=== PATIENT | male | born 1960 | race Caucasian/White ===

== ENCOUNTER 2018-01-04 13:25 | Inpatient (IN) | payer MEDICAID ==
[~2018-01-04] VITALS: Ht 180.3 cm; Wt 97.4 kg
[~2018-01-04 13:25] MED LIST: DOXY100C46 PO; FLUC200T50 PO
[2018-01-04 14:04] LABS: Urine WBC None Seen /hpf (0 - 3)
[2018-01-04 14:13] LABS: Urine Bacteria NONE SEEN /hpf (None Seen); Urine Blood 1+ /uL (Negative); Urine Mucus FEW (None Seen); Urine Specific Gravity 1.017 (1.001-1.035)
[2018-01-04 14:18] LABS: Basophils # (auto) 0.1 uL; Basophils % (auto) 1.4 % (0.0-2.0); Eosinophils # (auto) 0 uL; Eosinophils % (auto) 0.6 % (0.0-7.0); Hematocrit 45.1 % (41.0-53.0); Hemoglobin 15.3 g/dL (13.5-17.5); Lymphocytes # (auto) 1.5 uL; Lymphocytes % (auto) 20.7 % (10.0-50.0); Mean Corpuscular Hemoglobin 32.6 pg (28.0-32.0); Mean Corpuscular Hgb Conc. 33.9 g/dL (32.0-36.0); Monocytes # (auto) 0.5 uL; Monocytes % (auto) 6.6 % (0.0-12.0); Neutrophils % (auto) 70.7 % (37.0-80.0); Nucleated Red Blood Cells % 0.1 %; Platelet Count (auto) 317 10^3/uL (140-450); Red Cell Distribution Width 14.5 % (11.8-14.3); White Blood Cell 7.1 10^3/uL (4.4-10.8)
[2018-01-04 14:44] LABS: Albumin 1.7 g/dL (3.4-5.0); Calcium 8.2 mg/dL (8.5-10.1)
[2018-01-04 14:59] LABS: Bilirubin, Total 0.2 mg/dL (0.2-1.0); Total Protein 5.5 g/dL (6.4-8.2)
[2018-01-04 15:03] LABS: Potassium 4.2 mmol/L (3.5-5.1)
[2018-01-04 15:24] LABS: INR 0.93 (0.9-1.15); Partial Thromboplastin Time 27.3 sec (23.78-33.04)
[2018-01-04] MEDS ORDERED: LORazepam 0.5 MG TAB PO PRN (18:30)
[2018-01-04] MEDS ORDERED: ACETAMINOPHEN 500 MG TAB PO PRN (18:30)
[2018-01-04] MEDS ORDERED: NITROGLYCERIN 0.4 MG SL TAB SL PRN (18:30)
[2018-01-04] MEDS ORDERED: MORPHINE SULFATE 4 MG/ML SYR/VIAL IV PRN (18:30)
[2018-01-04] MEDS ORDERED: traMADol HCL 50 MG TAB PO PRN (18:30)
[2018-01-04] MEDS ORDERED: LACTULOSE 20Gm/30ML SOLN PO PRN (18:30)
[2018-01-04] MEDS ORDERED: ONDANSETRON HCL 4 MG/2 ML VIAL IV PRN (18:30)
[2018-01-04] MEDS ORDERED: TEMAZEPAM 15 MG CAP PO PRN (18:30)
[2018-01-04 19:28] LABS: Amylase 72 U/L (25-115); Lipase 132 U/L (73-393)
[2018-01-04] MEDS: CLINDAMYCIN 600MG IV 50 ML IV SCH (21:41)
[2018-01-04] MEDS: ATORVASTATIN 20 MG TAB PO SCH (21:42)
[2018-01-04] MEDS: CARVEDILOL 3.125 MG TAB PO SCH (21:42)
[2018-01-04 22:00] VITALS: BP 105/64
[2018-01-05 05:46] VITALS: BP 135/89
[2018-01-05 05:48] VITALS: BP_SYST 135; BP_SYST 141; BP_DIAS 75; BP_DIAS 89
[2018-01-05] MEDS: CLINDAMYCIN 600MG IV 50 ML IV SCH (06:00)
[2018-01-05 07:30] LABS: Cholesterol 240 mg/dL (< 200); HDL Cholesterol 55 mg/dL (40-59); LDL Cholesterol 171 mg/dL (< 100); Triglycerides 141 mg/dL (< 150)
[2018-01-05 09:00] VITALS: BP 144/68
[2018-01-05] MEDS ORDERED: cefTRIAXone 1GM/10ml IVPUSH 10 ML IV SCH (09:00)
[2018-01-05] MEDS: ASPirin 81 mg TAB PO SCH (09:30)
[2018-01-05] MEDS: FUROSEMIDE 40 MG/4 ML VIAL IV SCH (09:30)
[2018-01-05] MEDS: POTASSIUM CHL 20 Meq TABLET PO SCH (09:31)
[2018-01-05] MEDS: PANTOPRAZOLE 40 MG TAB PO SCH (09:31)
[2018-01-05] MEDS: CARVEDILOL 3.125 MG TAB PO SCH ×2 (09:31→21:54)
[2018-01-05] MEDS: ENALAPRIL MALEATE 2.5 MG TAB PO SCH (09:37)
[2018-01-05] MEDS ORDERED: ENOXAPARIN SOD 40 MG/0.4 ML SYRINGE SC SCH (10:00)
[2018-01-05] MEDS ORDERED: NITROGLYCERIN 0.2MG/HR TOPICAL PATCH TD SCH (10:00)
[2018-01-05 13:00] VITALS: BP 138/83
[2018-01-05 17:00] VITALS: BP 100/72
[2018-01-05] MEDS: ATORVASTATIN 20 MG TAB PO SCH (21:54)
[2018-01-05 22:00] VITALS: BP 110/54
[2018-01-06 05:00] VITALS: BP 113/56
[2018-01-06 07:12] LABS: Calcium 7.8 mg/dL (8.5-10.1); Magnesium 2.4 mg/dL (1.6-2.6); Potassium 4.4 mmol/L (3.5-5.1)
[2018-01-06 07:13] LABS: BUN/Creatinine Ratio 26.3
[2018-01-06 09:07] VITALS: BP 127/63
[2018-01-06] MEDS: PANTOPRAZOLE 40 MG TAB PO SCH (10:05)
[2018-01-06] MEDS: POTASSIUM CHL 20 Meq TABLET PO SCH (10:05)
[2018-01-06] MEDS: FUROSEMIDE 40 MG/4 ML VIAL IV SCH (10:05)
[2018-01-06] MEDS: CARVEDILOL 3.125 MG TAB PO SCH (10:05)
[2018-01-06] MEDS: ENALAPRIL MALEATE 2.5 MG TAB PO SCH (10:06)
[2018-01-06] MEDS: ASPirin 81 mg TAB PO SCH (10:12)
[2018-01-06 13:21] VITALS: BP 127/76
[2018-01-06] MEDS ORDERED: LIDOCAINE 2% (LOCAL ANESTH.) PF 5ml SDV ONE (13:35)
[2018-01-06] MEDS ORDERED: IODIXANOL 320MG/ML 100ML BTL IV ONE (13:35)
[2018-01-06] MEDS ORDERED: SODIUM CHL 0.9% 0 ML ONE (14:24)
[2018-01-06] MEDS ORDERED: MIDAZOLAM HCL 1MG/1ML-2 ML VIAL ONE (14:24)
[2018-01-06] MEDS ORDERED: ANGIOMAX 250 MG VIAL IV ONE (14:24)
[2018-01-06] MEDS ORDERED: fentaNYL CITRATE 100 MCG/2 ML VL ONE (14:24)
[2018-01-06] MEDS ORDERED: VERAPAMIL 2.5MG/ML INJ 2ML VIAL IV ONE (14:24)
[2018-01-06] MEDS ORDERED: HEPARIN SODIUM (PORCINE) 5000 UNITS/ML 1ML VIAL ONE (14:40)
[2018-01-06] MEDS ORDERED: CAR3125T PO (16:16)
[2018-01-06] MEDS ORDERED: POTA20TA53 PO (16:16)
[2018-01-06] MEDS ORDERED: FURO40TA4 PO (16:16)
[2018-01-06] MEDS ORDERED: ENA2.5T PO (16:16)
[2018-01-06] MEDS ORDERED: ATOR20TA50 PO (16:16)
[2018-01-06] MEDS ORDERED: ASPI81CH43 PO (16:16)
[2018-01-06 17:16] VITALS: BP 132/78
[2018-01-06 21:24] LABS: Alcohol, Urine < 3.0 mg/dL (0-5); Amphetamine Screen, Urine NEGATIVE (NEGATIVE); Barbiturate Scree,Urine NEGATIVE (NEGATIVE); Benzodiazephine Screen, Urine POSITIVE (NEGATIVE); Cannabinoid Screen, Urine NEGATIVE (NEGATIVE); Cocaine Screen, Urine NEGATIVE (NEGATIVE); Opiate Scree,Urine NEGATIVE (NEGATIVE); Phencyclidine Screen, Urine NEGATIVE (NEGATIVE)
[2018-01-09 13:30] LABS: Hepatitis B Surface Antibody Negative
[2018-01-09 14:33] LABS: Hepatitis B Surface Antigen Negative (Negative); Hepatitis C Antibody Negative (Negative)
== END 2018-01-06 18:55 | disposition home or self-care (01) | DRG 192 ==
LOC: ER 13:25 → TELE 13:26 → TELE-CENTR 20:50
PROVIDERS: ADMIT Internal Medicine; ATTEND Internal Medicine Pulmonary Disease
PROC: 4A023N7 Measurement of Cardiac Sampling and Pressure, Left Heart, Percutaneous Approach (ICD-10-PCS; principal; 2018-01-06)
PROC: B2111ZZ Fluoroscopy of Multiple Coronary Arteries using Low Osmolar Contrast (ICD-10-PCS; 2018-01-06)
PROC: B2151ZZ Fluoroscopy of Left Heart using Low Osmolar Contrast (ICD-10-PCS; 2018-01-06)
DX: I11.0 Hypertensive heart disease with heart failure (principal); I21.09 ST elevation (STEMI) myocardial infarction involving other coronary artery of anterior wall; E43 Unspecified severe protein-calorie malnutrition; L03.115 Cellulitis of right lower limb; E88.09 Other disorders of plasma-protein metabolism, not elsewhere classified; E46 Unspecified protein-calorie malnutrition; I50.41 Acute combined systolic (congestive) and diastolic (congestive) heart failure; I20.0 Unstable angina; F15.10 Other stimulant abuse, uncomplicated; F17.210 Nicotine dependence, cigarettes, uncomplicated; I73.9 Peripheral vascular disease, unspecified; F19.10 Other psychoactive substance abuse, uncomplicated; Z82.49 Family history of ischemic heart disease and other diseases of the circulatory system; Z82.5 Family history of asthma and other chronic lower respiratory diseases; Z91.14 Patient's other noncompliance with medication regimen; Z88.2 Allergy status to sulfonamides
CPT/HCPCS: 36415; 71046; 73620; 74176; 76705; 80048; 80053; 80061; 80307; 81001; 82150; 82378; 82550; 83690; 83735; 83880; 84443; 84484; 85025; 85379; 85610; 85652; 85730; 86141; 86703; 86706; 86803; 87340; 93005; 93306; 93458; 93970; 94761; 96365; 99152; A6257; J0696; J2001; J2250; J3490; Q9967

== ENCOUNTER 2019-08-24 04:58 | Inpatient (IN) | payer MEDICAID ==
[2019-08-24] VITALS (33 sets, daily range): BP systolic 86–132; BP diastolic 51–91
[~2019-08-24] VITALS: Ht 175.3 cm; Wt 87.9 kg
[~2019-08-24 04:58] MED LIST changes: +ASPI81CH43 PO; +ATOR20TA50 PO; +CAR3125T PO; -DOXY100C46 PO; +ENAL2.5T2 PO; -FLUC200T50 PO; +FURO40TA4 PO; +POTA-220 PO
[2019-08-24] MEDS ORDERED: ONDANSETRON HCL 4 MG/2 ML VIAL IV ONE (06:15)
[2019-08-24] MEDS ORDERED: MORPHINE SULFATE 4 MG/ML SYR/VIAL IV ONE (06:15)
[2019-08-24 07:02] LABS: Eosinophils # (auto) 0 10 ^3/uL (0-0.8); Mean Corpuscular Hgb Conc. 33.4 g/dL (32.0-36.0)
[2019-08-24 07:04] LABS: Basophils # (auto) 0 10 ^3/uL (0-0.2); Basophils % (auto) 0.6 % (0.0-2.0); Eosinophils % (auto) 0.2 % (0.0-7.0); Hematocrit 40.9 % (41.0-53.0); Hemoglobin 13.7 g/dL (13.5-17.5); Lymphocytes # (auto) 0.9 10 ^3/uL (0.4-5.4); Lymphocytes % (auto) 13.1 % (10.0-50.0); Mean Corpuscular Hemoglobin 35.4 pg (28.0-32.0); Mean Corpuscular Volume 105.8 fL (80.0-100.0); Monocytes # (auto) 0.8 10 ^3/uL (0-1.3); Monocytes % (auto) 11.7 % (0.0-12.0); Neutrophils # (auto) 4.9 10 ^3/uL (1.6-8.6); Neutrophils % (auto) 74.4 % (37.0-80.0); Nucleated Red Blood Cells % 0.9 %; Platelet Count (auto) 186 10^3/uL (140-450); Red Blood Cells 3.87 10^6/uL (4.5-5.90); Red Cell Distribution Width 18.2 % (11.8-14.3); White Blood Cell 6.6 10^3/uL (4.4-10.8)
[2019-08-24 07:05] LABS: Albumin 3.3 g/dL (3.4-5.0); Magnesium 2.4 mg/dL (1.6-2.6)
[2019-08-24 07:08] LABS: INR 1.59 (0.9-1.15); Partial Thromboplastin Time 37.4 sec (23.64-32.05)
[2019-08-24 07:10] LABS: BUN/Creatinine Ratio 8.2; Total Protein 6.8 g/dL (6.4-8.2)
[2019-08-24 07:18] LABS: Potassium 6.9 mmol/L (3.5-5.1)
[2019-08-24] MEDS ORDERED: SODIUM ZIRCONIUM CYCL 10 GM PAK PO ONE (09:30)
[2019-08-24] MEDS ORDERED: SODIUM BICARBONATE 8.4% INJ 50ML SYRINGE IV ONE ×3 (09:30→10:45)
[2019-08-24] MEDS ORDERED: DEXTROSE (50%) 50ML SYRG IV ONE (09:30)
[2019-08-24] MEDS ORDERED: ALBUTEROL SULF 2.5 MG/0.5ML(0.5%) NEB SOLN NEB ONE (09:30)
[2019-08-24] MEDS ORDERED: InsuLIN REG 1unit/0.01ml Soln (100units/ml) IV ONE (09:30)
[2019-08-24] MEDS ORDERED: CALCIUM GLUC 4.65meq/50ml D5AE 50 ML IV ONE ×2 (09:30→10:30)
[2019-08-24] MEDS ORDERED: MORPHINE SULF INJ 2 MG/ML SYRINGE 1ML IV PRN (09:45)
[2019-08-24] MEDS ORDERED: ACETAMINOPHEN 500 MG TAB PO PRN (09:45)
[2019-08-24] MEDS ORDERED: NITROGLYCERIN 0.4 MG SL TAB SL PRN (09:45)
[2019-08-24] MEDS ORDERED: AMIODARONE HCL 150 MG in D5W 5% 100 ML IV ONE (10:30)
[2019-08-24] MEDS ORDERED: AMIODARONE 450mg/250ml AE 250 ML IV SCH (10:38)
[2019-08-24] MEDS ORDERED: SODIUM BICARBONATE 8.4% INJ 50ML SYRINGE ONE (10:40)
[2019-08-24] MEDS ORDERED: AMIODARONE HCL (50 MG/ ML) 3 ML VIAL IV ONE (10:41)
[2019-08-24] MEDS: FUROSEMIDE 40 MG/4 ML VIAL IV SCH ×2 (11:11→22:00)
[2019-08-24] MEDS: ASPirin 81 mg TAB PO SCH (11:17)
[2019-08-24] MEDS: CARVEDILOL 3.125 MG TAB PO SCH ×2 (11:18→22:00)
[2019-08-24] MEDS: FAMOTIDINE 20 MG TAB PO SCH (11:18)
[2019-08-24] MEDS ORDERED: SODIUM CHL 0.9% 1000 ML BAG XX ONE (12:00)
[2019-08-24 12:15] LABS: Potassium 5.8 mmol/L (3.5-5.1)
[2019-08-24] MEDS ORDERED: ALBUMIN 25% 100 ML IV ONE (13:00)
[2019-08-24] MEDS ORDERED: LORazepam 2MG/ML-1ML VIAL ONE (14:27)
--- NOTE | 2019-08-24 15:00 | NUR ---
Pt being admitted to ICU [facility] admitted to ICU via gurney on manager cardiac, and portable 02. Patient transferred to bed, connected to ICU monitoring and oxygen, and weighed by bed scale. Patient oriented to GEOVANY VILLA RN primary RN, unit, room, bed, and unit policies regarding patient care and visiting hours. All questions and concerns addressed, patient verbalized understanding.
--- NOTE | 2019-08-24 16:18 | NUR ---
THIS RN UNABLE TO COMPLETE ADMISSION ASSESSMENT IN TI'S ENTIRETY BECAUSE PATIENT IS NOT ALERT ENOUGH TO ANSWER ALL QUESTIONS. PATIENT IS ONLY CURRENTLY ALERT TO HIMSELF AND IS SLEEPING AND NOT ANSWERING ANY QUESTIONS. MD EMERSON MADE AWARE.
--- NOTE | 2019-08-24 17:00 | NUR ---
SPOKE TO PATIENTS MOTHER ELIEZER, UPDATED HER ON PATIENTS CURRENT CONDITION. ANSWERED ALL QUESTIONS AT THIS TIME AND REVIEWED POC.
[2019-08-24] MEDS: AMIODARONE 450mg/250ml AE 250 ML IV SCH (17:23)
--- NOTE | 2019-08-24 19:51 | NUR ---
ADMITTED TO ICU TODAY FROM ER. DIALYSIS IN ,ER REMOVED 1999CC. WENT INTO VTACHY DURING DIALYSIS. SHOCKED X 1 AND CAME BACK INTO A NSR. ON AN AMIODARONE DRIP .5 IV SINCE 1699. SLEEPY.
[2019-08-24] MEDS ORDERED: ENOXAPARIN SOD 60 MG/0.6 ML SYRINGE SC ONE (20:45)
[2019-08-24] MEDS ORDERED: LIDOCAINE 50MG/5ML INJ 5ML SYRINGE IV ONE (20:45)
[2019-08-24] MEDS ORDERED: LIDOCAINE HCL 100 MG/5ML (2%) SYRG INJ IV ONE (20:59)
--- NOTE | 2019-08-24 22:00 | NUR ---
CALLING OUT FOR WATER TO DRINK. WAKES UP, STARTLES, WAVES HIS ARMS, BRUSHES HIS FACE AND OFTEN REMOVES THE O2 NC. REMIND HIM TO KEEP THE OXYGEN ON. THEN HE WAKES UP REALLY AND IS NORMAL. HE IS CARELESS WITH HIS LINES. ALL IV SITES/NICHELLE/CVC DRESSINGS FOUND OFF, BLOODIED. DR PERES HERE. HE IS AWARE OF THE FREQUENT SHORT BURSTS OF VTACHY., BLEEDING AT HIS IV SITES, MENTATION, AMIODARONE DRIP. DIALYSIS. ORDERS RECEIVED AND CARRIED OUT. LIDOCAINE 100MG IV GIVEN SLOWLY. NO RESPONSE TO LESSENING THE VTACHY. CONSULT TO DR MALLOY. HE CALLED BACK AND ORDERED AN ABG. TROPONINS ELEVATED AND ANOTHER WAS ADDED FOR THE MORNING. LOVENOX GIVEN. ECHOCARDIOGRAM ORDERED.
[2019-08-24] MEDS: ATORVASTATIN 20 MG TAB PO SCH (23:03)
[2019-08-25] VITALS (93 sets, daily range): BP systolic 90–160; BP diastolic 46–102
--- NOTE | 2019-08-25 | NUR ---
BECOMING MORE AWAKE. STILL STARTLES WHEN HE WAKES UP AND IS CARELESS WITH HIS LINES. HE IS THIRSTY. I LET HIM DRINK SOME CRANBERY JUICE AND THE REST HAS BEEN ICE.HEART RATE RANGES BETWEEN 52 AND 80 DEPENDING ON THE VTACHY BURSTS AND PVCS. IV LINES ARE STABLE. NO BLEEDING FROM THE SITES.
--- NOTE | 2019-08-25 03:49 | NUR ---
ASKING FOR WATER, WATER , WATER. I SAT DOWN AND EXPLAINED TO HIM WHAT TRANSPIRED IN ER AND WHERE HE IS RIGHT NOW. ENCOURAGED HIM TO COMPLY WITH DIALYSIS ON A REGULAR BASIS AND TO FOLLOW A FLUID RESTRICTION WITH NUTRITION.
[2019-08-25 04:58] LABS: Basophils # (auto) 0.1 10 ^3/uL (0-0.2); Basophils % (auto) 0.8 % (0.0-2.0); Eosinophils # (auto) 0 10 ^3/uL (0-0.8); Hematocrit 42.1 % (41.0-53.0); Hemoglobin 13.9 g/dL (13.5-17.5); Lymphocytes # (auto) 0.5 10 ^3/uL (0.4-5.4); Lymphocytes % (auto) 6.2 % (10.0-50.0); Mean Corpuscular Hemoglobin 35.3 pg (28.0-32.0); Mean Corpuscular Volume 107.1 fL (80.0-100.0); Monocytes # (auto) 0.8 10 ^3/uL (0-1.3); Monocytes % (auto) 9.6 % (0.0-12.0); Neutrophils % (auto) 83.4 % (37.0-80.0); Nucleated Red Blood Cells % 1.2 %; Platelet Count (auto) 150 10^3/uL (140-450); Red Blood Cells 3.93 10^6/uL (4.5-5.90); Red Cell Distribution Width 18.2 % (11.8-14.3); White Blood Cell 8.4 10^3/uL (4.4-10.8)
--- NOTE | 2019-08-25 05:14 | NUR ---
32 BEAT RUN OF LIGIA
[2019-08-25 05:20] LABS: Albumin 3.1 g/dL (3.4-5.0); Calcium 10.5 mg/dL (8.5-10.1)
[2019-08-25 05:26] LABS: BUN/Creatinine Ratio 7.1; Bilirubin, Total 1.5 mg/dL (0.2-1.0); Total Protein 6.4 g/dL (6.4-8.2)
[2019-08-25 05:29] LABS: Potassium 6.3 mmol/L (3.5-5.1)
[2019-08-25] MEDS: AMIODARONE 450mg/250ml AE 250 ML IV SCH (07:38)
[2019-08-25] MEDS ORDERED: SODIUM ZIRCONIUM CYCL 10 GM PAK PO ONE ×2 (08:15→12:00)
[2019-08-25] MEDS: ONDANSETRON HCL 4 MG/2 ML VIAL IV PRN (08:58)
[2019-08-25] MEDS: FUROSEMIDE 40 MG/4 ML VIAL IV SCH (10:00)
[2019-08-25] MEDS: CARVEDILOL 3.125 MG TAB PO SCH ×2 (10:00→22:00)
[2019-08-25] MEDS: NOREPINEPHRINE 8 MG/250ML KIT 250 ML IV SCH (11:30)
--- NOTE | 2019-08-25 13:00 | NUR ---
Resumed care at 0715, upon arrival in bed and answering questions appropriately. Is restless in bed secondary to back problems. Asked if he can sit on edge of bed. Assisted to edge of bed and immediately felt better. S/P cardiac arrest, yesterday, but did not have to be intubated. Diagnosed with HI. Having a lot of cardiac arrhythmias (junctional rhythm with frequent PVC's, couplets and sinus blocks) rate varies from 37-60. In no acute distress with no complaints. Reviewed plan of care with patient and made him aware of what had transpired yesterday (could not remember). Dr. Tobias, dishtank operator was in at 0820, at bedside. Per Dr. Tobias discontinued Amiodarone gtt due to bradycardia. Turned off at 0830. Contacted Dr. Bonilla, pyrotechnist, at 0802 and made her aware of chemistry report. Ordered hemodialysis for today and also ordered Lokelma 10 gm po for high K level (6.3). Reviewed plan of care, comprehensive. Medicated with Lokelma and post ingestion he vomited it. Medicated with Zofran at 0858. Zofran effective. [place] fatback trimmer arrived 1115 to initiate hemodialysis. Obtained order earlier to start Levophed gtt while on dialysis per Dr. Bonilla if needed. Levophed started at 1130 at 2mcg/min for BP support. At 1135 Candie Sutton. tech. at bedside. Tolerating hemodialysis and remains calm in bed with no complaints. Have spoken to his daughter Haley and his mother Becky via phone today. Addendum: 08/26/19 at 1841 by Guillermina Adams RN RN Patient did not go into cardiac arrest yesterday. Went in to VT and was shocked with 120 joules x one.
[2019-08-25] MEDS ORDERED: LIDOCAINE 50MG/5ML INJ 5ML SYRINGE IV ONE (14:15)
[2019-08-25 15:06] LABS: Albumin 3.4 g/dL (3.4-5.0)
[2019-08-25 15:10] LABS: BUN/Creatinine Ratio 6.4; Bilirubin, Total 1.5 mg/dL (0.2-1.0); Total Protein 6.6 g/dL (6.4-8.2)
[2019-08-25] MEDS: ASPirin 81 mg TAB PO SCH (15:49)
[2019-08-25] MEDS: MEXILETINE HYDROCHLORIDE 150 MG CAP PO SCH ×2 (15:49→22:17)
[2019-08-25] MEDS: FAMOTIDINE 20 MG TAB PO SCH (15:49)
--- NOTE | 2019-08-25 16:37 | NUR ---
1358: Ending of dialysis session and having more episodes of VTACH. [place] Hemodialysis nurse at bedside and called for help. Upon arrival to room he became diaphoretic and unresponsive and became very pale. Berta RN attempting to palpate carotid pulse, as she was palpating he suddenly came to and looking around room. Sustained VTACH for slightly over 30 seconds. Continue to have a junctional rhythm with frequent PVC's and couplets. Rate anywhere from 60-90. Reoriented to place and situation, responsive. Dialysis session ended at 1410. 3.3 liters of fluid removed. Contacted Dr. Darby data power consultant at 1220 and made him aware of above. Ordered a one time dose of Lidocaine 50mg IVP and was given at 1424. Heart has increased after hemodialysis but continued to have frequent runs of VT varied in length. Contacted Dr. Tobias once again and discussed plan of care. Ordered for Dr. John to consult regarding the recurring VT. Contacted Dr. John at 1457. Discussed case and orders taken to start Mexiletine, ordered dose given. Dr. Clemens rounded at 1555, at bedside. Reviewed all data and medications. Made him aware of held am scheduled medications. Has been resting quietly with no complaints post dialysis.
--- NOTE | 2019-08-25 17:16 | NUR ---
Mother Mariel and daughter Haley allowed in to visit secondary to lethal arrhythmias. Updated on today's events.
--- NOTE | 2019-08-25 19:59 | NUR ---
ADMITTED FROM ER ON 08/24/2019. VTACHY IN ER DURING DIALYSIS. HAD A 30 SECOND RUN OF VTACHY TODAY AT THE END OF DIALYSIS. CONTINUES TO BE HYPERKALEMIC, HIGH BUN AND HIGH CREATININE. ABUNDANT VENTRICULAR ARRYTHMIAS IN THE FORM OF UNIFOCAL PVC, COUPLETS, 5 BEAT RUNS OF VTACHY, AND LONG RUNS OF SINUS TACHYCARDIA RATE 120. AWAKE.ORIENTED. NOT HUNGRY. UNEQUAL PUPILS. LUNSFORD WELL. LIJ TLC . NO IV FLUIDS. DIALYSIS PATIENT WITH A RIGHT SHOULDER TUNNELED CATHETER. 2 PERIPHERAL IV SITES. ALL SHOW NO REDNESS OR SWELLING. NO NAUSEA. PLACED ON MEXILITINE TODAY BY DR RENNER. ONE DOSE OF LOKELMA TODAY.
--- NOTE | 2019-08-25 20:57 | NUR ---
MULTIFOCAL PVCS. SBP STABLE. HOB FLAT. SLEEPING. DRANK A LITTLE WATER.
--- NOTE | 2019-08-25 22:00 | NUR ---
TURNS SELF IN BED FREQUENTLY/INDEPENDENTLY. SKIN IS ITCHY. SILICONE CREAM APPLIED TO LEGS /BUTTOCKS AND GLUTEAL CLEFT. IMMEDIATE AREA SURROUNDING HIS ANUS IS RED. SMALL CIRCULAR WOUND WHERE BUTTOCKS MEETS THE LEG. LOTION APPLIED THERE. NO NAUSEA. HELD COREG. EVEN WHEN HIS RATE IS 70, IF HE IS HAVING BIGEMINAL PVCS, THEY ARE NOT PERFUSING. SBP STABLE. MEXILETINE GIVEN. HAVE NOT NOTICED A DECREASE IN ARRYTHMIAS . THERE IS A LOT OF BIGEMINAL PVCS. NOT FREQUENT 4-5 RUNS OF VTACHY. NO RUN OF VTACHY GREATER THAN 10. SCROTAL SWELLING. PITTING EDEMA IN BOTH LEGS 1-2+. REDRESSED THE LIJ TLC DRESSING. THE POSITION OF IT IS CLOSE TO HIS HAIR LINE AND THAT EDGE HAS COME LOOSE. SMALLER CLEAR DRESSING USED THIS TIME.
[2019-08-25] MEDS: ATORVASTATIN 20 MG TAB PO SCH (22:17)
--- NOTE | 2019-08-25 23:00 | NUR ---
11 EPISODES IN THE LAST HOUR WHERE THERE IS A NORMAL SINUS RHYTHM RUN WITHOUT ECTOPY IN THE NEAR VACINITY. THE RUNS OF VTACH HAVE BEEN 3-5 AND LESS FREQUENT.
[2019-08-26] VITALS (93 sets, daily range): BP systolic 90–157; BP diastolic 6–107
--- NOTE | 2019-08-26 | NUR ---
HAD ONE 5 MINUTE AND ONE 7 MINUTE RUN OF SINUS TACHYCARDIA 120. NO MORE THAN 7-8 BEAT RUN OF VTACH. IT'S SLIGHTLY BETTER.ALERT. ORIENTED. SLEEPS A LOT. IV SITE SHOWS NO REDNESS OR SWELLING. SBP STABLE. NEEDS HIS OXYGEN, DESATURATES WITHOUT IT.
--- NOTE | 2019-08-26 02:00 | NUR ---
OVER THE PAST 2 HOURS THERE WERE 10 RUNS OF REGULAR NSR OR ST WITH NO ECTOPY. OTHER THAN THAT, HIS RHYTHM IS CHARACTERIZED BY BIGEMINY, COUPLETS, OR VTACHY RUNS OF UP TO 7 BEATS. SLEEPING.
--- NOTE | 2019-08-26 03:53 | NUR ---
AM LABS SENT. DCD THE 2 PERIPHERAL IVS. WALKED TO COMMODE. DID WELL. NEEDED A LITTLE ASSISTANCE WITH STANDING. STATED THAT HE FELT DIZZY WHEN UP.
--- NOTE | 2019-08-26 04:00 | NUR ---
13 RUNS OF EITHER NSR OR ST WITHOUT ECTOPY. CONTINUES OTHERWISE TO HAVE VENTRICULAR BIGEMINY, COUPLETS OR SHORT RUNS OF VTACHY THAT ARE SELF LIMITING. THE AVERAGE VTACHY RUN WAS 4-6 BEATS. ASLEEP AT THE MOMENT.
[2019-08-26 04:25] LABS: Calcium 10.6 mg/dL (8.5-10.1)
[2019-08-26 04:37] LABS: Potassium 5.8 mmol/L (3.5-5.1)
[2019-08-26] MEDS: MEXILETINE HYDROCHLORIDE 150 MG CAP PO SCH ×2 (05:44→14:04)
--- NOTE | 2019-08-26 05:50 | NUR ---
3RD DOSE OF MEXITIL GIVEN. 15 RUNS OF SINUS TACHY OR NSR WITHOUT ECTOPY. OTHERWISE THERE IS BIGEMINY, COUPLETS, SHORT RUNS OF VTACHY. STABLE BLOOD PRESSURE. HR RANGE 58-116. PULLS OXYGEN OFF
[2019-08-26] MEDS: NOREPINEPHRINE 8 MG/250ML KIT 250 ML IV SCH (08:15)
[2019-08-26] MEDS: ASPirin 81 mg TAB PO SCH (10:31)
[2019-08-26] MEDS: FAMOTIDINE 20 MG TAB PO SCH (10:31)
[2019-08-26] MEDS: CARVEDILOL 3.125 MG TAB PO SCH (10:31)
[2019-08-26] MEDS: ONDANSETRON HCL 4 MG/2 ML VIAL IV PRN (11:10)
[2019-08-26] MEDS: SODIUM ZIRCONIUM CYCL 10 GM PAK PO SCH ×2 (11:15→22:00)
--- NOTE | 2019-08-26 12:05 | NUR ---
Resumed care at 0715, orders reviewed and ongoing assessments being done. Upon arrival in bed awake and interacting appropriately and in no acute distress. Assisted to edge of bed and with am care. Is able to participate with care. Continues to have frequent PVC's, couplets and short runs of VT. BP has been holding. No complaints of chest pain or palpitations. Continues to to feel fatigued and with no appetite. Only ate a few bites of breakfast. Dr. Darby, field service supervisor, at bedside at 1030. Discussed condition and plan of care. Reviewed medications. Per Dr. Darby okay to give Coreg. 3.[address] Bonilla also in unit at [address] Darby and discussed case. Dr. Bonilla ordered hemodialysis for tomorrow and ordered Lokelma to be administered for K level, 5.8. Both aware of the continuos dysthymias. Spoke with Mariel (mother) earlier today and updated on condition.
[2019-08-26] MEDS: AMIODARONE 450mg/250ml AE 250 ML IV SCH (13:38)
[2019-08-26] MEDS ORDERED: SEVE800T8 PO (15:42)
[2019-08-26] MEDS ORDERED: LEVO25TA6 PO (15:42)
[2019-08-26] MEDS ORDERED: TIZA4CAP PO (15:42)
[2019-08-26] MEDS ORDERED: HYDR-4833 PO (15:42)
[2019-08-26] MEDS ORDERED: HYDR50TA69 PO (15:42)
[2019-08-26] MEDS ORDERED: DULO60CA PO (15:42)
--- NOTE | 2019-08-26 18:53 | NUR ---
Has been resting quietly in no acute distress throughout shift. Continues to have frequent PVC's and short runs of VT. No complaint of chest pain or palpations. Continues to have poor appetite and only po fluids taken. Contacted Dr. Bonilla at 1853 to report critical K level, 6.3. Orders obtained and will follow.
[2019-08-26] MEDS ORDERED: SODIUM BICARBONATE 8.4 % INJ 50ML VIAL IV ONE (19:00)
[2019-08-26] MEDS ORDERED: CALCIUM GLUC 4.65meq/50ml D5AE 50 ML IV ONE ×2 (19:00→19:06)
[2019-08-26] MEDS ORDERED: InsuLIN REG 1unit/0.01ml Soln (100units/ml) IV ONE (19:00)
[2019-08-26] MEDS ORDERED: DEXTROSE (50%) 50ML SYRG IV ONE (19:00)
[2019-08-26] MEDS ORDERED: SODIUM BICARBONATE 8.4% INJ 50ML SYRINGE ONE (19:03)
[2019-08-26] MEDS ORDERED: InsuLIN REG 1unit/0.01ml Soln (100units/ml) ONE (19:05)
[2019-08-26] MEDS ORDERED: DEXTROSE 50% SYRINGE 50 ML IV ONE (19:06)
--- NOTE | 2019-08-26 20:00 | NUR ---
ADMITTED ON 08/24/19. MENTATION IS CLEARER. PUPILS REMAIN UNEQUAL L BEING LARGER THAN R. CT OF HEAD IS NEGATIVE. LUNSFORD WELL. LUNGS CLEAR. 4LNP. MORE RELAXED, NOT RESTLESS HE HAD BEEN. APPETITE REMAINS POOR. DRINKING SIPS OF CRANBERRY JUICE. LIJ TLC DRESSING SECURE/CLEAN WITH BIOPATCH AT SITE. HAD THE CALCIUM GLUCONATE, INSULIN, D50 AND NA BICARB AT 1900 TO HELP DECREASE THE HIGH POTASSIUM LEVEL OF 6.3. LOKELMA WAS GIVEN EARLIER. PITTING EDEMA PERSISTS IN HIS SCROTUM AND BILATERAL LEGS. NO SKIN ISSUES. SOME SCATTERED ECCHYMOTIC AREAS ON ARMS AND SMALL SCABS. ALL PULSES STRONG AND PALPABLE. ALL EXTREMITIES ARE WARM.
--- NOTE | 2019-08-26 21:23 | NUR ---
WAREHOUSE LABORER HERE. DR PETERSON PLACED AN ORDER THROUGH THE WAREHOUSE LABORER TO DO DIALYSIS TONIGHT.
--- NOTE | 2019-08-26 21:27 | NUR ---
INFORMED THE FREIGHT REPRESENTATIVE THAT THE "COCKTAIL" WAS GIVEN AT 1900 TO DECREASE THE POTASSIUM LEVEL. PLAN IS TO TAKE OFF 2LITERS OF FLUID. SHE STATED THAT SHE DID NOT WANT A POTASSIUM LEVEL NOW.
--- NOTE | 2019-08-26 21:30 | NUR ---
DISCUSSED MED LIST WITH ART TEACHER. MEDS ARE DIALYZABLE. WILL WAIT TILL AFTER DIALYSIS TO GIVE.
--- NOTE | 2019-08-26 21:34 | NUR ---
REVIEWED RHYTHM SINCE 1900. ALTHOUGH WE STILL HAVE FREQUENT PVCS, BIGEMINY, COUPLETS, AND RUNS OF VTACHY, THE FREQUENCY IS MUCH LESS. STRINGS OF NSR OR ST ARE GETTING LONGER. ONE SET WAS 15 MINUTES. THE LONGEST RUN OF V TACHY WAS 11 BEATS.
--- NOTE | 2019-08-26 22:32 | NUR ---
NO BLOOD PRESSURE ISSUES OR ARRYTHMIA ISSUES DURING DIALYSIS. WE STARTED THE DIALYSIS AT 2134
[2019-08-27] VITALS (82 sets, daily range): BP systolic 84–141; BP diastolic 46–95
[2019-08-27] MEDS: LEVALBUTEROL HCL 1.25 MG/3 ML NEB NEB SCH ×4 (00:13→18:12)
--- NOTE | 2019-08-27 00:30 | NUR ---
DIALYSIS ENDED. 2 LITERS OFF. NO TROUBLE WITH BLOOD PRESSURE OR ECTOPY. LUNGS CLEAR. 4LNP. O2 SAT 96%. THE PROCESS OF DIALYSIS MAKES HIM SLEEPY. SENT AM LABS NOW BEFORE I GIVE HIS LOKELMA. ANURIC. DENIES PAIN. JAN BEFORE THE LOKELMA
[2019-08-27 00:34] LABS: Basophils # (auto) 0 10 ^3/uL (0-0.2); Basophils % (auto) 0.5 % (0.0-2.0); Eosinophils # (auto) 0 10 ^3/uL (0-0.8); Eosinophils % (auto) 0.4 % (0.0-7.0); Hematocrit 41.1 % (41.0-53.0); Lymphocytes # (auto) 0.7 10 ^3/uL (0.4-5.4); Lymphocytes % (auto) 10.6 % (10.0-50.0); Mean Corpuscular Hemoglobin 36.6 pg (28.0-32.0); Mean Corpuscular Volume 107.4 fL (80.0-100.0); Monocytes # (auto) 0.6 10 ^3/uL (0-1.3); Monocytes % (auto) 9.5 % (0.0-12.0); Nucleated Red Blood Cells % 2.2 %; Platelet Count (auto) 106 10^3/uL (140-450); Red Blood Cells 3.83 10^6/uL (4.5-5.90); Red Cell Distribution Width 18.5 % (11.8-14.3); White Blood Cell 6.3 10^3/uL (4.4-10.8)
[2019-08-27] MEDS: MEXILETINE HYDROCHLORIDE 150 MG CAP PO SCH ×4 (00:34→22:18)
[2019-08-27] MEDS: ONDANSETRON HCL 4 MG/2 ML VIAL IV PRN (00:34)
[2019-08-27] MEDS: ATORVASTATIN 20 MG TAB PO SCH ×2 (00:35→22:18)
[2019-08-27] MEDS: CARVEDILOL 3.125 MG TAB PO SCH ×3 (00:35→22:00)
[2019-08-27 00:52] LABS: BUN/Creatinine Ratio 6.3; Calcium 10.1 mg/dL (8.5-10.1)
--- NOTE | 2019-08-27 02:00 | NUR ---
HAS BEEN SLEEPING .VSS. NO PVCS, COUPLETS, BIGEMINY, OR VTACH RUNS.
--- NOTE | 2019-08-27 04:00 | NUR ---
SLEEPING. DENIES NAUSEA. OCCASIONAL PVCS. NOT LIKE BEFORE. ORIENTED.
--- NOTE | 2019-08-27 06:00 | NUR ---
RARE COUPLET, PVC OR SHORT RUN OF VTACHY. WOKE UP, TOOK HIS PILLS. SPEECH CLEAR. IV SITE SHOWS NO REDNESS OR SWELLING.
[2019-08-27] MEDS: LEVOTHYROXINE SODIUM 25 MCG TAB PO SCH (06:03)
[2019-08-27] MEDS ORDERED: SODIUM CHL 0.9% 1000 ML BAG XX ONE (07:00)
--- NOTE | 2019-08-27 07:30 | NUR ---
MD VISIT PT SEEN AND EXAMINED BY DR PERES. STATES HE TALKED WITH THE PT ABOUT PT HAVING AN ANGIOGRAM TOMORROW. PT WANTS TO THINK ABOUT IT.
--- NOTE | 2019-08-27 07:40 | NUR ---
REPORT REPORT RECEIVED FROM JOSIE RNLUIS. BEDSIDE CHECK DONE. PT RESTING IN BED WITH EYES CLOSED, APPEARS ASLEEP, WITH VSS. CONTINUE TO MONITOR.
--- NOTE | 2019-08-27 08:07 | NUR ---
ASSESSMENT PT RESTING IN BED, OPENS EYS WHEN NAME CALLED. FOLLOWS SIMPLE COMMANDS. ABLE TO TURN SELF IN BED. LUNGS CLEAR AND DIMINISHED THROUGHOUT. O2 AT 4 L/M VIA NC WITH O2 SAT OF 97%. PT WANTS O2 OFF, BUT TOLD HIM HE CURRENTLY NEEDS IT. TITRATED DOWN TO 3 L/M AND WILL MONITOR O2 SAT. TELE SB [address] IN LEADS I AND II. PALPABLE PULSES TO ALL EXTREMITIES WITH NO EDEMA NOTED. ABD SOFT WITH + BOWEL SOUNDS. LAS T BM WAS FRIDAY 08/25. PT IS ANURIC. PT RECEIVES HDX WT ACCESS TO HIS RIGHT CHEST. PULLED PT UP IN BED. TURNED TO HIS SIDE AND HIS SKIN IS INTACT. PT THEN SAT ON THE SIDE OF THE BED AND BREAKFAST SERVED. O2 SAT NOW 91%. CONTINUE TO MONITOR.
[2019-08-27] MEDS: NOREPINEPHRINE 8 MG/250ML KIT 250 ML IV SCH (08:15)
[2019-08-27] MEDS: ASPirin 81 mg TAB PO SCH (09:51)
[2019-08-27] MEDS: SEVELAMER 800 MG TAB PO SCH ×3 (09:52→18:30)
[2019-08-27] MEDS: DULoxetine HCL 30 MG CAP PO SCH (09:52)
[2019-08-27] MEDS: FAMOTIDINE 20 MG TAB PO SCH (09:52)
--- NOTE | 2019-08-27 09:52 | NUR ---
PT GIVEN SCHEDULED MEDS WITH SIPS OF WATER. CONTINUE TO MONITOR. Addendum: 08/27/19 at 1502 by Daria Subramanian RN HELD COREG DUE TO VS: 56 HR AND 92/54. DR LARISA WOOTEN.
--- NOTE | 2019-08-27 12:02 | NUR ---
RESPIRATORY ENTERED ROOM AND PT WITH O2 OFF AND O2 SAT DROPPING DOWN, TO 74%. REAPPLIED O2 AT 2 L/M AND O2 SAT UP TO 93% WITHIN 1 MINUTE. ADVISED PT THAT HE NEEDS TO KEEP HIS O2 ON. HE EXPRESSED UNDERSTANDING.
--- NOTE | 2019-08-27 12:15 | NUR ---
Nutrition Assessment Notes Please refer to link for full assessment notes. Est Energy needs: 8768-4604 kcals (20-23 kcal/kgBW) Est Protein needs: 98-120 gms/day (1.12-1.37gm/kgBW) d/t heart failure Will continue to monitor and reassess prn. Addendum: 08/27/19 at [address] Amended: Links added. Addendum: 08/27/19 at [address] Correction to Recommendation: Suggest Renal Standard diet/2gm Sodium diet
--- NOTE | 2019-08-27 14:06 | NUR ---
MD VISIT PT SEEN BY GHOTRA. WITH BOTH OF US IN THE ROOM, DR HOGUE SPOKE WITH THE PT REGARDING THE ANGIOGRAM. PT STATES HE IS WILLING TO HAVE IT DONE. WILL NOTIFY DR PERES. DR HOGUE STATED THAT THE PT COULD BE MOVED TO [facility] , IF APPROVED BY DR PERES AND DR RENNER.
--- NOTE | 2019-08-27 14:15 | NUR ---
CALLED THE OFFICE AND DR PERES IS IN WITH A PT. LEFT A MESSAGE FOR DR PERES TO INFORM HIM THAT PT AGREES TO ANGIOGRAM.
--- NOTE | 2019-08-27 15:40 | NUR ---
RESPIRATORY PT ASLEEP WITH O2 SATS DOWN TO 79%. O2 IS OUT OF THE PT'S NOSE. PLACED O2 BACK ON PT AT 2L/M WITH O2 SAT SLOWLY UP TO 82%. INCREASED TO 3L AND THEN 5L SATS STAYING IN THE 80'S . AFTER 4 MINUTES O2 SATS UP TO 94%. CONTINUE TO MONITOR,
--- NOTE | 2019-08-27 15:51 | NUR ---
RESPIRATORY O2 AT 4 L/M VIA NC WITH O2 SAT OF 97% AND DECREASED FIO2 TO 3 L/M . CONTINUE TO MONITOR.
--- NOTE | 2019-08-27 16:50 | NUR ---
MD/PHONE RECEIVED A CALL BACK FROM DR RENNER. I UPGRADED HIM ON PT'S CURRENT CONDITION, THAT DR Charlee HOGUE SAID THAT THE PT COULD BE DOWNGRADED TO [facility] IF OKAY WITH ANAMARIA PERES AND ZURDO. ALSO NOTIFIED THAT IT IS OKAY WITH DR PERES AND ALSO THAT HE IS SCHEDULING THE PT FOR AN ANGIOGRAM IN THE AM. DR RENNER STATED THAT IF THE ANGIOGRAM IS NEGATIVE THEN HE WILL TALK TO THE PT ABOUT PLACING AN AICD.
--- NOTE | 2019-08-27 18:15 | NUR ---
PT RESTING IN BED WITH EYES CLOSED WHILE GETTING HIS BREATHING TREATMENT. OPENS EYES TO NAME. DENIES PAIN. WILL ADMINISTER RENAGEL WHEN DINNER ARRIVES.
--- NOTE | 2019-08-27 18:30 | NUR ---
DINNER HERE AND BROUGHT TO ROOM. WOKE PT , DOES NOT WANT TO EAT YET.
--- NOTE | 2019-08-27 18:45 | NUR ---
PT STILL DOES NOT WANT TO EAT.
--- NOTE | 2019-08-27 19:00 | NUR ---
WOKE PT BUT HE "DOESN'T WANT TO EAT YET.".
--- NOTE | 2019-08-27 19:45 | NUR ---
REPORT REPORT GIVEN TO NIGHT RNLUIS. TRIED AGAIN TO GET PT TO EAT HIS DINNER. "I'LL EAT LATER". RETURNED MARKY BEDOYA.
--- NOTE | 2019-08-27 19:51 | NUR ---
ADMITTED WITH NSTEMI, LEG SWELLING, BODY ACHES , LETHARGY , HYPERKALEMIA. TODAY, AFTER 3 DIALYSIS TREATMENTS, HIS RHYTHM IS IMPROVING. LESS PVCS AND RUNS OF VTACHY. SINUS BRADYCARDIA. SBP 90-105 SYSTOLIC. HAS BEEN SLEEPY SINCE HIS DIALYSIS LAST EVENING. AMIODARONE DRIP WAS REPLACED WITH PO MEXITIL. TODAY COREG HELD. APPETITE IMPROVED TODAY. ANURIC. INTERGLUTEAL REDNESS. SKIN IS ITCHY. TUNNELED NICHELLE CATH IN RIGHT CHEST WALL. NO CURRENT PLANS FOR THE NEXT DIALYSIS. PLAN IS FOR A HEART CATH TOMORROW WITH DR PERES. PITTING EDEMA PERSISTS IN LOWER LEGS. SCROTAL EDEMA.
--- NOTE | 2019-08-27 22:00 | NUR ---
TOOK PILLS AND WATER WELL. HAS BEEN SLEEPING A LOT. SINUS BRADYCARDIA IN THE 50S. BP BORDERLINE. MAP WITHIN NORMAL PARAMETERS.
[2019-08-28] VITALS (25 sets, daily range): BP systolic 93–117; BP diastolic 49–78
--- NOTE | 2019-08-28 | NUR ---
STILL VERY SLEEPY. MOVES SELF IN BED. 3LNP. DOES DESATURATE WITH SLEEPING. LUNGS CLEAR. ANURIC. ALL PULSES PALPABLE. 1-2+ PITTING EDEMA IN LEGS.SINUS BRADYCARDIA. NO ECTOPY FOR HOURS. HELD 2200 COREG DUE TO THE BRADYCARDIA. WAKES UP. SPEECH CLEAR.
[2019-08-28] MEDS: LEVALBUTEROL HCL 1.25 MG/3 ML NEB NEB SCH ×4 (00:56→18:01)
--- NOTE | 2019-08-28 02:00 | NUR ---
SINUS BRADYCARDIA WITH A VERY RARE PVC. SLEEPING. SBP STABLE. TURNS SELF IN BED.
--- NOTE | 2019-08-28 04:00 | NUR ---
DOING WELL. DENIES PAIN OR NAUSEA. AWARE HE IS NPO FOR PROCEDURE. CHECKLIST DONE. SINUS BRADYCARDIA. NO ECTOPY. STATES HE IS FEELING BETTER. LUNGS CLEAR. 3LNP. NO DYSPNEA, DIAPHORESIS OR CHEST PAIN.
[2019-08-28 04:28] LABS: Basophils # (auto) 0 10 ^3/uL (0-0.2); Eosinophils # (auto) 0.1 10 ^3/uL (0-0.8); Lymphocytes # (auto) 0.5 10 ^3/uL (0.4-5.4)
[2019-08-28 04:30] LABS: Basophils % (auto) 0.3 % (0.0-2.0); Eosinophils % (auto) 0.7 % (0.0-7.0); Hematocrit 39.6 % (41.0-53.0); Hemoglobin 13.1 g/dL (13.5-17.5); Lymphocytes % (auto) 7.5 % (10.0-50.0); Mean Corpuscular Hemoglobin 35.7 pg (28.0-32.0); Mean Corpuscular Hgb Conc. 33.2 g/dL (32.0-36.0); Mean Corpuscular Volume 107.5 fL (80.0-100.0); Monocytes # (auto) 0.7 10 ^3/uL (0-1.3); Monocytes % (auto) 9.7 % (0.0-12.0); Neutrophils # (auto) 5.8 10 ^3/uL (1.6-8.6); Neutrophils % (auto) 81.8 % (37.0-80.0); Nucleated Red Blood Cells % 0.9 %; Platelet Count (auto) 94 10^3/uL (140-450); Red Blood Cells 3.68 10^6/uL (4.5-5.90); Red Cell Distribution Width 17.9 % (11.8-14.3); White Blood Cell 7.1 10^3/uL (4.4-10.8)
[2019-08-28 04:46] LABS: BUN/Creatinine Ratio 7.4; Calcium 9.8 mg/dL (8.5-10.1); INR 1.63 (0.9-1.15); Partial Thromboplastin Time 41.4 sec (23.64-32.05); Potassium 5.2 mmol/L (3.5-5.1)
--- NOTE | 2019-08-28 05:25 | NUR ---
REPORT GIVEN TO TINA JETT. PLACED IN A [facility] BED. ON A PORTABLE MONITOR. MEDS SENT WITH PATIENT. TRANSFER ORDERS PROCESSED.
[2019-08-28] MEDS: LEVOTHYROXINE SODIUM 25 MCG TAB PO SCH (05:27)
[2019-08-28] MEDS: MEXILETINE HYDROCHLORIDE 150 MG CAP PO SCH ×3 (05:27→22:24)
--- NOTE | 2019-08-28 05:45 | NUR ---
PATIENT IS IN ROOM 261. PLACED ON BEDSIDE MONITOR, CYCLED BLOOD PRESSURE , AND CONNECTED TO THE PULSE OXIMETER. IN SINUS BRADYCARDIA, RATE 54
--- NOTE | 2019-08-28 06:18 | NUR ---
PT APPEARS TO BE SLEEPING NO DISTRESS NOTED. BREATHING EVEN AND UNLABORED. CALL LIGHT WITHIN REACH. WILL ENDORSE CARE TO DAY NURSE.
[2019-08-28] MEDS ORDERED: LIDOCAINE 2%HCL (LOCAL ANESTH.) INJ 20ML MDV ONE (07:29)
[2019-08-28] MEDS ORDERED: IODIXANOL 320MG/ML 100ML BTL IV ONE ×4 (07:29→08:15)
--- NOTE | 2019-08-28 07:30 | NUR ---
PATIENT WENT TO TEMPERATURE CONTROL INSPECTOR FOR LEFT HEART CATH PROCEDURE.
[2019-08-28] MEDS ORDERED: ANGIOMAX 250 MG VIAL IV ONE (07:46)
[2019-08-28] MEDS ORDERED: HEPARIN SODIUM (PORCINE) 5000 UNITS/ML 1ML VIAL ONE (07:46)
[2019-08-28] MEDS ORDERED: SODIUM CHL 0.9% 0 ML ONE (07:47)
[2019-08-28] MEDS ORDERED: fentaNYL CITRATE 100 MCG/2 ML VL ONE (07:47)
[2019-08-28] MEDS ORDERED: VERAPAMIL 2.5MG/ML INJ 2ML VIAL IV ONE (07:47)
[2019-08-28] MEDS ORDERED: MIDAZOLAM HCL 1MG/1ML-2 ML VIAL ONE (07:47)
--- NOTE | 2019-08-28 07:58 | NUR ---
Pt transported from [facility] to paving and surfacing labourer in stable condition with monitor car operator on 3L NC. No s/s of discomfort/distress. Placed on procedure table and connected to equipment monitoring. See MAC lab for continued care. Will cont to monitor pt.
[2019-08-28] MEDS: SEVELAMER 800 MG TAB PO SCH ×3 (08:00→18:26)
--- NOTE | 2019-08-28 08:30 | NUR ---
Report given to Lewis in detail regarding cardiac procedure. See MAC lab for details. Pt stable. VS WNL. Will prepare to transport pt and cont to monitor.
--- NOTE | 2019-08-28 08:36 | NUR ---
Pt transported to [facility] from lab asst in stable condition connected to a backbreaker and 3L O2 NC by 2 RN's. Care endorsed to [facility] MARQUISE Saucedo. No incidents to report. Addendum: 08/28/19 at 0858 by Zoe Hernandez RN Extended note: Vasc band to the left wrist. [facility] WNL. No bleeding; no hematoma. Vasc band instructions placed in chart for further instruction.
--- NOTE | 2019-08-28 08:51 | NUR ---
PATIENT RETURNED FROM BUSINESS INTELLIGENCE ENGINEER, PATIENT CURRENTLY SLEEPING. VS: HR- 54, BP-83/56, RESP- 13, O2 SAT 96% ON 2L NC.
--- NOTE | 2019-08-28 09:26 | NUR ---
2 ML OF AIR REMOVED FROM VASC BAND. NO S/S BLEEDING NOTED.
--- NOTE | 2019-08-28 09:45 | NUR ---
2 ML OF AIR REMOVED FROM VASC BAND. NO S/S BLEEDING NOTED.
[2019-08-28] MEDS: FAMOTIDINE 20 MG TAB PO SCH (10:00)
[2019-08-28] MEDS: ASPirin 81 mg TAB PO SCH (10:00)
[2019-08-28] MEDS: CARVEDILOL 3.125 MG TAB PO SCH ×2 (10:00→22:25)
[2019-08-28] MEDS: DULoxetine HCL 30 MG CAP PO SCH (10:00)
--- NOTE | 2019-08-28 10:00 | NUR ---
2 ML OF AIR REMOVED FROM VASC BAND. NO S/S BLEEDING NOTED.
--- NOTE | 2019-08-28 10:15 | NUR ---
2 ML OF AIR REMOVED FROM VASC BAND. NO S/S BLEEDING NOTED.
--- NOTE | 2019-08-28 10:30 | NUR ---
2 ML OF AIR REMOVED FROM VASC BAND. NO S/S BLEEDING NOTED.
--- NOTE | 2019-08-28 10:43 | NUR ---
VASC BAND REMOVED AT THIS TIME. NO S/S BLEEDING NOTED WILL CONTINUE TO MONITOR.
[2019-08-28] MEDS ORDERED: SODIUM CHL 0.9% 1000 ML BAG XX ONE (12:45)
[2019-08-28] MEDS ORDERED: MEX150C PO (12:51)
[2019-08-28] MEDS ORDERED: DOXY-338 PO (12:54)
[2019-08-28] MEDS ORDERED: DOXYCYCLINE 100MG/250ML 250 ML IV ONE (13:00)
--- NOTE | 2019-08-28 15:25 | NUR ---
2 LITERS REMOVED FROM DIALYSIS. PATIENT TOLERATED WELL.
[2019-08-28 15:46] LABS: BUN/Creatinine Ratio 5.8; Calcium 8.9 mg/dL (8.5-10.1); Potassium 3.5 mmol/L (3.5-5.1)
--- NOTE | 2019-08-28 16:39 | NUR ---
DR. RENNER HERE TO SEE PATIENT. SEE MD NOTE AND EMR FOR ANY NEW ORDERS.
--- NOTE | 2019-08-28 19:30 | NUR ---
DINNER patient refused to eat dinner.He drank milk.
--- NOTE | 2019-08-28 21:45 | NUR ---
FAMILY RECEIVED PHONE CALL FROM PATIENT'S MOTHER. PASSWORD CONFIRMED AND UPDATES GIVEN.
[2019-08-28] MEDS: ATORVASTATIN 20 MG TAB PO SCH (22:24)
[2019-08-28] MEDS: DOXYCYCLINE 100 MG TAB/CAP PO SCH (22:24)
[2019-08-29] VITALS (7 sets, daily range): BP systolic 103–125; BP diastolic 70–83
--- NOTE | 2019-08-29 06:00 | NUR ---
Central Line Dressing Changes Central line dressing change done with a sterile technique. Cleansed with chloraprep scrub/betadine. Bio-patch applied to the site. Occlusive dressing applied.
[2019-08-29 06:15] LABS: Basophils # (auto) 0 10 ^3/uL (0-0.2); Basophils % (auto) 0.5 % (0.0-2.0); Eosinophils # (auto) 0 10 ^3/uL (0-0.8); Lymphocytes # (auto) 0.4 10 ^3/uL (0.4-5.4)
[2019-08-29] MEDS: LEVALBUTEROL HCL 1.25 MG/3 ML NEB NEB SCH ×5 (06:18→23:33)
[2019-08-29 06:19] LABS: Eosinophils % (auto) 0.8 % (0.0-7.0); Hematocrit 38.2 % (41.0-53.0); Hemoglobin 12.9 g/dL (13.5-17.5); Lymphocytes % (auto) 7.7 % (10.0-50.0); Mean Corpuscular Hgb Conc. 33.7 g/dL (32.0-36.0); Monocytes # (auto) 0.5 10 ^3/uL (0-1.3); Monocytes % (auto) 10.1 % (0.0-12.0); Neutrophils # (auto) 4.3 10 ^3/uL (1.6-8.6); Neutrophils % (auto) 80.9 % (37.0-80.0); Nucleated Red Blood Cells % 0.5 %; Platelet Count (auto) 74 10^3/uL (140-450); Red Blood Cells 3.58 10^6/uL (4.5-5.90); Red Cell Distribution Width 18.5 % (11.8-14.3); White Blood Cell 5.3 10^3/uL (4.4-10.8)
[2019-08-29] MEDS: MEXILETINE HYDROCHLORIDE 150 MG CAP PO SCH ×3 (06:31→21:41)
[2019-08-29] MEDS: LEVOTHYROXINE SODIUM 25 MCG TAB PO SCH (06:31)
[2019-08-29 06:40] LABS: BUN/Creatinine Ratio 6.2; Calcium 9.6 mg/dL (8.5-10.1); Potassium 4.6 mmol/L (3.5-5.1)
--- NOTE | 2019-08-29 08:00 | NUR ---
Opening Shift Note Assumed care of patient, awake and alert. No S/S of distress/SOB or pain. See interventions for complete assessment. Bed locked on low position, side rails up x2, bed alarms on at all times, call ansari within reach, instructed on POC and to call for assist PRN, will continue to monitor for changes Q1hr and PRN.
[2019-08-29] MEDS: SEVELAMER 800 MG TAB PO SCH ×3 (08:12→18:13)
--- NOTE | 2019-08-29 09:47 | NUR ---
Dr iRvas at bedside, updated on patient's status. Patient seen and examined. Will carry out new orders.
--- NOTE | 2019-08-29 09:58 | NUR ---
Assessment Patient is a 59-year-old male who is alert and oriented. Prior to admission patient lived home with family and functioned with assistance. Patient informed me he has a walker and cane for home use. Patient informed me he is on Dialysis with [facility] Tuesday, Tuesday, and Tuesday at 13:00. Per patient he will return home to his prior living arrangements post discharge and family will transport him home. Advised patient there is a Social Service consult for home health safety evaluation and physical therapy and home 02. Informed patient clinical information will be faxed to contracted agency and to for DME. Informed patient he has the right to participate in all discharge planning. Patient verbalized understanding and agreed to discharge plans. Cristina with [facility] advised me patient has been on service with [employer]. Faxed clinical information to [employer] and . Pending on acceptance. Addendum: 08/29/19 at 1001 by GIOVANNA LÓPEZ Amended: Links added.
[2019-08-29] MEDS: ASPirin 81 mg TAB PO SCH (10:00)
[2019-08-29] MEDS: FAMOTIDINE 20 MG TAB PO SCH (10:00)
[2019-08-29] MEDS: DULoxetine HCL 30 MG CAP PO SCH (10:27)
[2019-08-29] MEDS: DOXYCYCLINE 100 MG TAB/CAP PO SCH ×2 (10:27→21:48)
[2019-08-29] MEDS: CARVEDILOL 3.125 MG TAB PO SCH ×2 (10:27→21:42)
--- NOTE | 2019-08-29 11:07 | NUR ---
Received call from patient's mother Mariel who's able to provide password, updated on patient's status and POC. All questions and concerns addressed.
--- NOTE | 2019-08-29 11:15 | NUR ---
Dr Salguero in [facility], updated on patient's status. No new orders at this time.
--- NOTE | 2019-08-29 14:08 | NUR ---
Patient out of bed with Olu PT, fall precautions in place. Patient tolerated few steps.
--- NOTE | 2019-08-29 17:22 | NUR ---
IV insertion IV access obtained, via clean sterile technique by inserting 20 gauge catheter at LT forearm after one attempt. IV secured properly. No trauma to site. Patient tolerated procedure well.
--- NOTE | 2019-08-29 17:48 | NUR ---
D/C planning Per Rebeca with [facility] ph [phone] patient has been accepted and service to start within 24-48hrs upon d/c day. Received a call from [facility] with [facility] advising me patient is already receiving service with for home O2. Per Nisha with ph:[phone] they will deliver oxygen upon d/c day. Obtain authorization from [facility] for [facility] [id number]. Informed MARQUISE Kraft.
--- NOTE | 2019-08-29 18:09 | NUR ---
PT SEEN FOR SCHEDULED NEB TX. PT REFUSED AT THIS TIME, REQUEST I COME BACK LATER. PT IS RESTING WITH NO ACUTE DISTRESS NOTED. WILL CHECK BACK AT NEXT SCHEDULED TX TIME. HR 77 RR 14 POX 99%
--- NOTE | 2019-08-29 18:09 | NUR ---
Dr Lisbeth Hutchinson at bedside, updated on patient's status. Patient seen and examined. Will carry out new orders.
--- NOTE | 2019-08-29 19:25 | NUR ---
Received report from Alexandra CAMARILLO. Patient to be transferred to the floor.
--- NOTE | 2019-08-29 19:33 | NUR ---
[facility] pt transferred to floor EKRON,ARTI transferred to tele floor via hospital bed on youth nutritional monitor and portable 02. All patient medications and personal belongings transfered with patient to receiving floor. Patient care transferred to Monica CAMARILLO.
--- NOTE | 2019-08-29 19:35 | NUR ---
Received patient: Received patient. Patient resting in bed with breaths even and unlabored. No s/s of distress SOB or pain noted. Bed is in lowest locked position with bed rails up x2 and call light is within reach of the patient. Educated that patient will bed NPO after midnight for procedure. Patient verbalized understanding.
[2019-08-29] MEDS: ATORVASTATIN 20 MG TAB PO SCH (21:48)
[2019-08-30 06:00] VITALS: BP 122/80
[2019-08-30] MEDS: MEXILETINE HYDROCHLORIDE 150 MG CAP PO SCH ×2 (06:00→14:00)
[2019-08-30] MEDS: LEVALBUTEROL HCL 1.25 MG/3 ML NEB NEB SCH ×2 (06:22→12:32)
[2019-08-30] MEDS: LEVOTHYROXINE SODIUM 25 MCG TAB PO SCH (07:00)
--- NOTE | 2019-08-30 07:00 | NUR ---
Patient taken down to procedure via bed. Patient tolerated well.
[2019-08-30] MEDS ORDERED: IODIXANOL 320MG/ML 100ML BTL IV ONE (07:19)
[2019-08-30] MEDS ORDERED: LIDOCAINE 2%HCL (LOCAL ANESTH.) INJ 20ML MDV ONE (07:19)
[2019-08-30] MEDS ORDERED: ATROPINE SULF 1 MG/10ml SYR ONE (07:29)
[2019-08-30] MEDS ORDERED: VANCOMYCIN HCL 1000 MG VL ONE (07:29)
[2019-08-30] MEDS ORDERED: MIDAZOLAM HCL 1MG/1ML-2 ML VIAL ONE (07:30)
[2019-08-30] MEDS ORDERED: fentaNYL CITRATE 100 MCG/2 ML VL ONE (07:30)
[2019-08-30] MEDS ORDERED: BACITRACIN INJ 50000 UNIT VIAL ONE (07:30)
[2019-08-30] MEDS ORDERED: VANCOMYCIN 1GM/250ML 250 ML IV ONE (07:36)
[2019-08-30] MEDS: SEVELAMER 800 MG TAB PO SCH ×3 (08:00→18:00)
[2019-08-30] MEDS: CARVEDILOL 3.125 MG TAB PO SCH (10:00)
[2019-08-30] MEDS: DOXYCYCLINE 100 MG TAB/CAP PO SCH (10:00)
[2019-08-30] MEDS ORDERED: VANCOMYCIN 1GM/250ML 250 ML IV SCH (10:00)
[2019-08-30] MEDS: DULoxetine HCL 30 MG CAP PO SCH (10:00)
[2019-08-30] MEDS: FAMOTIDINE 20 MG TAB PO SCH (10:00)
--- NOTE | 2019-08-30 10:21 | NUR ---
Patient on Unit Patient back on unit from laboratory phlebotomist at this time after AICD placement. Patient is drowsy. Dressing to site is clean, dry, and intact.
--- NOTE | 2019-08-30 10:50 | NUR ---
PATIENT HAD PROCEDURE TODAY. SKIP PT FOR TODAY. WILL ATTEMPT AGAIN TOMORROW. Addendum: 08/30/19 at 1052 by EDYTA SEPULVEDA PTT Amended: Links added.
--- NOTE | 2019-08-30 12:49 | NUR ---
Nutrition Followup Note Wt 87.9 kg Pt not in room at time of rounds, pt off floor for procedure. Pt NPO 08/29 for procedure. Pt po sporadic aeb pt with 100% po then 0, 100% then 0 08/26-08/27 per RN doc. Will continue to monitor po intake, if intake is inadequate consider possibly adding supplement. Est Energy needs: 7940-3404 kcals (20-23 kcal/kgBW) Est Protein needs: 98-120 gms/day (1.12-1.37gm/kgBW) d/t heart failure Will continue to monitor and reassess prn. Labs: 52H. Creat 8.34H, Alb 3.4 WNL Skin: BS 18 mod risk full detail per RN doc BM: 1 08/25 per RN doc PES: 1) Inadequate oral intake r/t pt with negligible appetite aeb pt with 0% PO intake 2) Altered nutrition related lab values r/t current/chronic medical condition aeb elev RFTs, low GFR, hypochloremia Comments Will continue to closely monitor pertinent labs, PO intake and skin status prn. Will followup in 3-5 days 1) Continue to closely monitor pt PO intake to meet at least 75% of meals 2) If pt appetite remains poor (<50% PO intake), consider supplemental nutrition support 3) Suggest Renal Specific 90g Pro,2gmNa,K2,low phos diet 4) Continue current plan of care Expected Outcomes/Goals: Pt appetite will improve Pt labs will improve
[2019-08-30 13:00] VITALS: BP 110/69
[2019-08-30] MEDS ORDERED: SODIUM CHL 0.9% 1000 ML BAG XX ONE (13:30)
--- NOTE | 2019-08-30 13:30 | NUR ---
Dialysis Dialysis to be started soon. associate scientist at bedside.
--- NOTE | 2019-08-30 14:57 | NUR ---
Call to Dr. Mistry Call to Dr. Mistry. Left a message on answering machine. Awaiting callback.
--- NOTE | 2019-08-30 15:00 | NUR ---
Call to Dr. Rivas Left a message with Dr. Rivas regarding patient's clearance for discharge awaiting callback.
--- NOTE | 2019-08-30 15:21 | NUR ---
Re: Oxygen saturation Patient has been on room air. Patient has been saturating at 90% on room air. No distress noted.
--- NOTE | 2019-08-30 15:26 | NUR ---
Repeat call to Dr. Mistry Call to Dr. Mistry at this. Left a message with his office to be paged. Awaiting callback.
--- NOTE | 2019-08-30 15:30 | NUR ---
Call from Dr. Rivas Call from Dr. Rivas. Patient is clear from a pulmonology standpoint.
--- NOTE | 2019-08-30 16:30 | NUR ---
Re: Cardiac Clearance Dr. Griffith speaking with Dr. Mistry at the station. Dr. Mistry states that patient is clear for discharge. Will discharge according to doctor's orders.
--- NOTE | 2019-08-30 16:35 | NUR ---
Re: Call to Daughter Call to Daughter at this time. No answer.
--- NOTE | 2019-08-30 16:38 | NUR ---
Call to Mother Call to MotherMariel. Informed that patient will be discharged. Mother will pick-up patient. Will notify Mariel when patient is ready for pick-up.
[2019-08-30 17:00] VITALS: BP 145/87
[2019-08-30 17:22] VITALS: BP 110/69
--- NOTE | 2019-08-30 17:30 | NUR ---
Call to Mother Call to mother Floyd, at this time. Patient is ready for pick-up. Mother states they will be here in 30 minutes. Explained to mother about pending prescription at preferred pharmacy and home health information.
[2019-08-30] MEDS ORDERED: EPOETIN ALFA 10,000 UNIT/1 ML VIAL SC ONE (21:00)
== END 2019-08-30 18:51 | disposition home health service (06) | DRG 192 ==
LOC: ER 04:58 → TELE 04:59 → ICU WEST 14:33 → DOU IN ICU 08-28 05:31 → TELE-CENTR 08-29 19:40
PROVIDERS: ADMIT Internal Medicine; ATTEND Hospitalist
PROC: 5A1D70Z Performance of Urinary Filtration, Intermittent, Less than 6 Hours Per Day (ICD-10-PCS; principal; 2019-08-24)
PROC: 5A1D70Z Performance of Urinary Filtration, Intermittent, Less than 6 Hours Per Day (ICD-10-PCS; 2019-08-25)
PROC: 5A1D70Z Performance of Urinary Filtration, Intermittent, Less than 6 Hours Per Day (ICD-10-PCS; 2019-08-26)
PROC: 5A1D70Z Performance of Urinary Filtration, Intermittent, Less than 6 Hours Per Day (ICD-10-PCS; 2019-08-28)
PROC: B211YZZ Fluoroscopy of Multiple Coronary Arteries using Other Contrast (ICD-10-PCS; 2019-08-28)
PROC: 5A1D70Z Performance of Urinary Filtration, Intermittent, Less than 6 Hours Per Day (ICD-10-PCS; 2019-08-30)
DX: I13.2 Hypertensive heart and chronic kidney disease with heart failure and with stage 5 chronic kidney disease, or end stage renal disease (principal); I21.4 Non-ST elevation (NSTEMI) myocardial infarction; J96.01 Acute respiratory failure with hypoxia; G93.49 Other encephalopathy; I47.2 Ventricular tachycardia; E87.2 Acidosis; D68.9 Coagulation defect, unspecified; N18.6 End stage renal disease; I50.43 Acute on chronic combined systolic (congestive) and diastolic (congestive) heart failure; E87.5 Hyperkalemia; M54.5 Low back pain; E03.9 Hypothyroidism, unspecified; G89.29 Other chronic pain; I47.1 Supraventricular tachycardia; N25.81 Secondary hyperparathyroidism of renal origin; M54.9 Dorsalgia, unspecified; E78.00 Pure hypercholesterolemia, unspecified; E78.5 Hyperlipidemia, unspecified; F17.210 Nicotine dependence, cigarettes, uncomplicated; Z99.2 Dependence on renal dialysis; Z91.15 Patient's noncompliance with renal dialysis; Z88.2 Allergy status to sulfonamides; Z79.899 Other long term (current) drug therapy; Z79.82 Long term (current) use of aspirin; Z82.49 Family history of ischemic heart disease and other diseases of the circulatory system; Z83.6 Family history of other diseases of the respiratory system
CPT/HCPCS: 36415; 36569; 36600; 70450; 71045; 80048; 80053; 80061; 80307; 82550; 82805; 82962; 83735; 83880; 84132; 84439; 84443; 84484; 85025; 85610; 85652; 85730; 87081; 90935; 93005; 93306; 93454; 93970; 94640; 99152; 99153; 99291; G0378; J0610; J1642; J1815; J2250; J2405; J7060; P9047; Q9967

== ENCOUNTER 2019-09-07 20:23 | Inpatient (IN) | payer MEDICAID ==
[~2019-09-07] VITALS: Ht 177.8 cm; Wt 77.1 kg
[~2019-09-07 20:23] MED LIST changes: +DOXY-338 PO; +DULO60CA PO; -ENAL2.5T2 PO; -FURO40TA4 PO; +HYDR-4833 PO; +HYDR50TA69 PO; +LEVO25TA6 PO; +MEX150C PO; -POTA-220 PO; +SEVE800T8 PO; +TIZA4CAP PO
[2019-09-07 21:26] LABS: Basophils # (auto) 0.1 10 ^3/uL (0-0.2); Eosinophils # (auto) 0 10 ^3/uL (0-0.8); Hemoglobin 13.9 g/dL (13.5-17.5)
[2019-09-07 21:28] LABS: Basophils % (auto) 1.1 % (0.0-2.0); Eosinophils % (auto) 0.3 % (0.0-7.0); Hematocrit 41.8 % (41.0-53.0); Lymphocytes % (auto) 19.9 % (10.0-50.0); Mean Corpuscular Hemoglobin 35.2 pg (28.0-32.0); Mean Corpuscular Hgb Conc. 33.3 g/dL (32.0-36.0); Mean Corpuscular Volume 105.7 fL (80.0-100.0); Monocytes # (auto) 0.8 10 ^3/uL (0-1.3); Monocytes % (auto) 15.9 % (0.0-12.0); Neutrophils # (auto) 3.1 10 ^3/uL (1.6-8.6); Neutrophils % (auto) 62.8 % (37.0-80.0); Platelet Count (auto) 112 10^3/uL (140-450); Red Blood Cells 3.95 10^6/uL (4.5-5.90); Red Cell Distribution Width 18.4 % (11.8-14.3); White Blood Cell 4.9 10^3/uL (4.4-10.8)
[2019-09-07 21:41] LABS: Albumin 2.8 g/dL (3.4-5.0); Calcium 9.4 mg/dL (8.5-10.1); Potassium 4.6 mmol/L (3.5-5.1)
[2019-09-07 21:55] LABS: BUN/Creatinine Ratio 5.8; Bilirubin, Total 0.9 mg/dL (0.2-1.0); Total Protein 5.8 g/dL (6.4-8.2)
[2019-09-08] MEDS ORDERED: MORPHINE SULF INJ 2 MG/ML SYRINGE 1ML IV PRN (02:45)
[2019-09-08] MEDS ORDERED: MORPHINE SULFATE 4 MG/ML SYR/VIAL IV PRN (02:45)
[2019-09-08] MEDS ORDERED: ONDANSETRON HCL 4 MG/2 ML VIAL IV PRN (02:45)
[2019-09-08] MEDS ORDERED: NITROGLYCERIN 0.4 MG SL TAB SL PRN (02:45)
[2019-09-08] MEDS ORDERED: ACETAMINOPHEN 325 MG TAB PO PRN (02:45)
[2019-09-08 05:41] VITALS: BP 136/71
[2019-09-08] MEDS: HYDROcodone-ACET 5/325MG TAB PO SCH ×2 (06:35→13:46)
[2019-09-08] MEDS ORDERED: LEVOTHYROXINE SODIUM 25 MCG TAB PO SCH (07:00)
[2019-09-08] MEDS ORDERED: hydrOXYzine 25 MG TAB or CAP PO PRN (08:30)
[2019-09-08 09:00] VITALS: BP 114/70
[2019-09-08] MEDS ORDERED: CARVEDILOL 3.125 MG TAB PO SCH (10:00)
[2019-09-08] MEDS ORDERED: DOCUSATE SOD 100 MG CAP PO SCH (10:00)
[2019-09-08] MEDS ORDERED: ASPirin 81 mg TAB PO SCH (10:00)
[2019-09-08] MEDS: FUROSEMIDE 20 MG/2 ML VIAL IV SCH ×2 (10:25→17:48)
[2019-09-08 11:26] LABS: Basophils # (auto) 0.1 10 ^3/uL (0-0.2); Eosinophils # (auto) 0 10 ^3/uL (0-0.8); Eosinophils % (auto) 0.4 % (0.0-7.0); Neutrophils # (auto) 3.4 10 ^3/uL (1.6-8.6); Nucleated Red Blood Cells % 0.1 %; Red Cell Distribution Width 18.2 % (11.8-14.3)
[2019-09-08 11:29] LABS: Basophils % (auto) 1.6 % (0.0-2.0); Hematocrit 41.6 % (41.0-53.0); Hemoglobin 13.7 g/dL (13.5-17.5); Lymphocytes # (auto) 1.5 10 ^3/uL (0.4-5.4); Lymphocytes % (auto) 25.7 % (10.0-50.0); Mean Corpuscular Hemoglobin 34.6 pg (28.0-32.0); Mean Corpuscular Volume 104.9 fL (80.0-100.0); Monocytes # (auto) 0.7 10 ^3/uL (0-1.3); Monocytes % (auto) 12.8 % (0.0-12.0); Neutrophils % (auto) 59.5 % (37.0-80.0); Platelet Count (auto) 129 10^3/uL (140-450); Red Blood Cells 3.96 10^6/uL (4.5-5.90); White Blood Cell 5.7 10^3/uL (4.4-10.8)
[2019-09-08 11:44] LABS: Calcium 9.5 mg/dL (8.5-10.1); Magnesium 2.4 mg/dL (1.6-2.6)
[2019-09-08 11:49] LABS: BUN/Creatinine Ratio 6.2
[2019-09-08] MEDS: SEVELAMER 800 MG TAB PO SCH ×2 (12:33→17:47)
[2019-09-08 13:00] VITALS: BP 106/67
[2019-09-08] MEDS ORDERED: SODIUM CHL 0.9% 1000 ML BAG XX ONE (13:15)
[2019-09-08 17:00] VITALS: BP 120/64
[2019-09-08 20:55] VITALS: BP 129/77
[2019-09-08] MEDS ORDERED: ATORVASTATIN 20 MG TAB PO SCH (22:00)
== END 2019-09-08 21:30 | disposition home or self-care (01) | DRG 194 ==
LOC: EDBD 20:23 → ER 20:26 → TELE 20:27 → TELE-CENTR 09-08 04:15
PROVIDERS: ADMIT Hospitalist; ATTEND Hospitalist
PROC: 5A1D70Z Performance of Urinary Filtration, Intermittent, Less than 6 Hours Per Day (ICD-10-PCS; principal; 2019-09-08)
DX: I13.2 Hypertensive heart and chronic kidney disease with heart failure and with stage 5 chronic kidney disease, or end stage renal disease (principal); I21.4 Non-ST elevation (NSTEMI) myocardial infarction; I42.8 Other cardiomyopathies; N18.6 End stage renal disease; E87.5 Hyperkalemia; I49.9 Cardiac arrhythmia, unspecified; E03.9 Hypothyroidism, unspecified; E78.5 Hyperlipidemia, unspecified; F17.210 Nicotine dependence, cigarettes, uncomplicated; D75.89 Other specified diseases of blood and blood-forming organs; J44.9 Chronic obstructive pulmonary disease, unspecified; Z82.49 Family history of ischemic heart disease and other diseases of the circulatory system; Z82.5 Family history of asthma and other chronic lower respiratory diseases; Z91.19 Patient's noncompliance with other medical treatment and regimen; Z95.810 Presence of automatic (implantable) cardiac defibrillator; Z99.2 Dependence on renal dialysis; Z88.2 Allergy status to sulfonamides; Z79.899 Other long term (current) drug therapy; I50.23 Acute on chronic systolic (congestive) heart failure
CPT/HCPCS: 36415; 70450; 80048; 80053; 80061; 82150; 83690; 83735; 83880; 84443; 84484; 85025; 87081; 90935; 93005; G0378; J1642

== ENCOUNTER 2019-11-10 20:03 | Inpatient (IN) | payer MEDICAID ==
[~2019-11-10] VITALS: Ht 177.8 cm; Wt 85.2 kg
[2019-11-10] MEDS ORDERED: SODIUM CHLORIDE 0.9% 1,000 ML IV ONE (22:00)
[2019-11-10 22:25] LABS: Basophils # (auto) 0 10 ^3/uL (0-0.2); Eosinophils # (auto) 0 10 ^3/uL (0-0.8); Eosinophils % (auto) 0.2 % (0.0-7.0); Hematocrit 38.6 % (41.0-53.0); Lymphocytes # (auto) 0.4 10 ^3/uL (0.4-5.4); Mean Corpuscular Volume 104.6 fL (80.0-100.0); Red Blood Cells 3.69 10^6/uL (4.5-5.90); White Blood Cell 2.8 10^3/uL (4.4-10.8)
[2019-11-10 22:26] LABS: Basophils % (auto) 0.3 % (0.0-2.0); Hemoglobin 12.2 g/dL (13.5-17.5); Lymphocytes % (auto) 14.1 % (10.0-50.0); Mean Corpuscular Hemoglobin 33.1 pg (28.0-32.0); Mean Corpuscular Hgb Conc. 31.7 g/dL (32.0-36.0); Monocytes # (auto) 0.3 10 ^3/uL (0-1.3); Monocytes % (auto) 9.2 % (0.0-12.0); Neutrophils # (auto) 2.2 10 ^3/uL (1.6-8.6); Neutrophils % (auto) 76.2 % (37.0-80.0); Nucleated Red Blood Cells % 0.4 %; Platelet Count (auto) 83 10^3/uL (140-450); Red Cell Distribution Width 17.1 % (11.8-14.3)
[2019-11-10 22:42] LABS: Albumin 2.7 g/dL (3.4-5.0); Calcium 9.6 mg/dL (8.5-10.1); Magnesium 2.6 mg/dL (1.6-2.6); Potassium 5.4 mmol/L (3.5-5.1)
[2019-11-10 22:46] LABS: INR 1.36 (0.9-1.15); Partial Thromboplastin Time 37.1 sec (23.0-31.2)
[2019-11-10 22:49] LABS: BUN/Creatinine Ratio 4.7; Bilirubin, Total 1.3 mg/dL (0.2-1.0); Total Protein 5.5 g/dL (6.4-8.2)
[2019-11-10] MEDS ORDERED: MORPHINE SULF INJ 2 MG/ML SYRINGE 1ML IV PRN (23:45)
[2019-11-10] MEDS ORDERED: NITROGLYCERIN 0.4 MG SL TAB SL PRN (23:45)
[2019-11-11] MEDS: cefTRIAXone 1GM/50ML D5W 50 ML IV SCH ×2 (01:36→10:16)
[2019-11-11 01:47] LABS: Lactic Acid w/Reflex 2.2 mmol/L (0.4-2.0)
[2019-11-11] MEDS: levoFLOXacin 250MG 50 ML IV SCH ×2 (01:56→10:16)
[2019-11-11] MEDS: LEVOTHYROXINE SODIUM 25 MCG TAB PO SCH (06:32)
[2019-11-11] MEDS ORDERED: ONDANSETRON HCL 4 MG/2 ML VIAL ONE (07:19)
[2019-11-11] MEDS ORDERED: ONDANSETRON HCL 4 MG/2 ML VIAL IV ONE (07:30)
[2019-11-11] MEDS ORDERED: TIZA4TAB3 PO (07:32)
[2019-11-11] MEDS ORDERED: HYDR-531 (07:32)
[2019-11-11] MEDS ORDERED: SEVE800T10 PO (07:32)
[2019-11-11] MEDS ORDERED: ATEN25TA PO (07:32)
[2019-11-11] MEDS ORDERED: DULO30CA84 PO (07:32)
[2019-11-11 07:54] LABS: Basophils # (auto) 0 10 ^3/uL (0-0.2); Eosinophils # (auto) 0 10 ^3/uL (0-0.8); Eosinophils % (auto) 0.1 % (0.0-7.0); Lymphocytes # (auto) 0.6 10 ^3/uL (0.4-5.4); Monocytes # (auto) 0.4 10 ^3/uL (0-1.3)
[2019-11-11 07:58] LABS: Basophils % (auto) 0.4 % (0.0-2.0); Hematocrit 35.4 % (41.0-53.0); Hemoglobin 11.6 g/dL (13.5-17.5); Lymphocytes % (auto) 16.6 % (10.0-50.0); Mean Corpuscular Hemoglobin 33.6 pg (28.0-32.0); Mean Corpuscular Hgb Conc. 32.8 g/dL (32.0-36.0); Mean Corpuscular Volume 102.4 fL (80.0-100.0); Monocytes % (auto) 9.7 % (0.0-12.0); Neutrophils # (auto) 2.7 10 ^3/uL (1.6-8.6); Neutrophils % (auto) 73.2 % (37.0-80.0); Nucleated Red Blood Cells % 0.5 %; Platelet Count (auto) 92 10^3/uL (140-450); Red Blood Cells 3.46 10^6/uL (4.5-5.90); Red Cell Distribution Width 17.1 % (11.8-14.3); White Blood Cell 3.7 10^3/uL (4.4-10.8)
[2019-11-11 08:09] LABS: Calcium 9.1 mg/dL (8.5-10.1)
[2019-11-11 08:15] LABS: BUN/Creatinine Ratio 5.5
[2019-11-11] MEDS ORDERED: PANTOPRAZOLE 40 MG/10 ML VIAL INJ IV ONE ×2 (08:22→08:45)
[2019-11-11 08:27] LABS: Potassium 5.6 mmol/L (3.5-5.1)
[2019-11-11] MEDS ORDERED: cefTRIAXone SOD 1,000 MG VL ONE (09:34)
[2019-11-11] MEDS: ATORVASTATIN 20 MG TAB PO SCH (10:16)
[2019-11-11] MEDS: ASPirin 81 mg TAB PO SCH (10:16)
[2019-11-11] MEDS: MEXILETINE HYDROCHLORIDE 150 MG CAP PO SCH ×2 (10:16→22:00)
[2019-11-11] MEDS ORDERED: IOHEXOL 350 MG/ML 100ML IJ ONE (12:11)
[2019-11-11] MEDS ORDERED: HEPARIN SODIUM (PORCINE) 5000 UNITS/ML 1ML VIAL IV ONE (13:30)
--- NOTE | 2019-11-11 15:03 | NUR ---
Report Received report from DEVIN Ortega RN. Per Shannon patient currently receiving dialysis; patient to be transferred to unit when dialysis is done.
--- NOTE | 2019-11-11 16:07 | NUR ---
Patient Arrived Patient arrived to unit. No signs of distress at this time. Safety precautions in place. Patient oriented to room and RN. Call light within reach, will continue to monitor.
--- NOTE | 2019-11-11 16:12 | NUR ---
Called MD Spoke with Dr. Salguero regarding CT angio. Per MD plan to do CT tomorrow if patient is to receive dialysis on Tuesday.
[2019-11-11 16:41] VITALS: BP 113/74
[2019-11-11 17:11] VITALS: BP 113/74
--- NOTE | 2019-11-11 19:00 | NUR ---
MD Allison Notified Dr. Griffith of CT angio and clearance by Dr. Bonilla.
--- NOTE | 2019-11-11 19:00 | NUR ---
at Station Dr. Bonilla at nurses station. Per MD, patient clear to have CT angio tomorrow.
--- NOTE | 2019-11-11 19:20 | NUR ---
Opening Shift Note Patient is AOx4. Patient laying supine in bed w/ HOB at 30 degrees and call light within reach. Bed locked in lowest position. No s/s of distress or SOB at this time. Will continue to monitor patient.
[2019-11-11 20:00] VITALS: BP 87/62
[2019-11-11 20:03] LABS: BUN/Creatinine Ratio 5.5; Calcium 8.9 mg/dL (8.5-10.1); Potassium 4.9 mmol/L (3.5-5.1)
[2019-11-11] MEDS: HYDROcodone-ACET 5/325MG TAB PO PRN (20:47)
--- NOTE | 2019-11-11 20:50 | NUR ---
Patient Complains of Pain Pain medication given as prescribed for pain.
[2019-11-11 22:00] VITALS: BP 87/62
[2019-11-11] MEDS: DULoxetine HCL 30 MG CAP PO SCH (22:00)
[2019-11-12 05:00] VITALS: BP 117/78
[2019-11-12 06:34] LABS: Basophils # (auto) 0 10 ^3/uL (0-0.2); Basophils % (auto) 0.5 % (0.0-2.0); Eosinophils # (auto) 0 10 ^3/uL (0-0.8); Eosinophils % (auto) 0.4 % (0.0-7.0); Hematocrit 36.3 % (41.0-53.0); Hemoglobin 11.6 g/dL (13.5-17.5); Lymphocytes # (auto) 0.9 10 ^3/uL (0.4-5.4); Lymphocytes % (auto) 22.9 % (10.0-50.0); Mean Corpuscular Hemoglobin 33.6 pg (28.0-32.0); Mean Corpuscular Hgb Conc. 32.1 g/dL (32.0-36.0); Mean Corpuscular Volume 104.9 fL (80.0-100.0); Monocytes # (auto) 0.4 10 ^3/uL (0-1.3); Monocytes % (auto) 11.5 % (0.0-12.0); Neutrophils # (auto) 2.4 10 ^3/uL (1.6-8.6); Neutrophils % (auto) 64.7 % (37.0-80.0); Nucleated Red Blood Cells % 1.7 %; Platelet Count (auto) 125 10^3/uL (140-450); Red Blood Cells 3.46 10^6/uL (4.5-5.90); Red Cell Distribution Width 17.4 % (11.8-14.3); White Blood Cell 3.7 10^3/uL (4.4-10.8)
[2019-11-12 06:55] LABS: Calcium 9.2 mg/dL (8.5-10.1); Potassium 4.9 mmol/L (3.5-5.1)
[2019-11-12] MEDS: LEVOTHYROXINE SODIUM 25 MCG TAB PO SCH (06:55)
[2019-11-12 06:57] LABS: BUN/Creatinine Ratio 5.6
--- NOTE | 2019-11-12 07:10 | NUR ---
Care Endorsed to Quyen Adorno RN .
[2019-11-12] MEDS: SEVELAMER 800 MG TAB PO SCH ×3 (08:00→18:36)
[2019-11-12 09:00] VITALS: BP 116/87
[2019-11-12] MEDS ORDERED: PANTOPRAZOLE 40 MG TAB PO SCH (10:00)
[2019-11-12] MEDS: MEXILETINE HYDROCHLORIDE 150 MG CAP PO SCH (10:40)
[2019-11-12] MEDS: DULoxetine HCL 30 MG CAP PO SCH (10:40)
[2019-11-12] MEDS: ASPirin 81 mg TAB PO SCH (10:40)
[2019-11-12] MEDS: ATORVASTATIN 20 MG TAB PO SCH (10:40)
[2019-11-12] MEDS ORDERED: IOHEXOL 350 MG/ML 100ML IJ ONE (10:46)
[2019-11-12] MEDS: HYDROcodone-ACET 5/325MG TAB PO PRN (11:05)
[2019-11-12 13:00] VITALS: BP 123/86
--- NOTE | 2019-11-12 15:58 | NUR ---
Cleared for D/C? Left messages for Dr. Bonilla and Dr. Salguero to see if the patient is ok to be D/Cd per Dr. Griffith request.
--- NOTE | 2019-11-12 16:14 | NUR ---
Nephro - Dr. Lema Cleared patient for D/C and said to follow up for outpatient HD as scheduled.
--- NOTE | 2019-11-12 16:33 | NUR ---
Cardio - Dr. Salguero Patient is cleared from Cardio standpoint as CT angio was done today and is negative for PE. He does not feel the SOB is cardiac related.
[2019-11-12 17:00] VITALS: BP 118/81
[2019-11-12] MEDS ORDERED: LEVO-28 PO (17:17)
--- NOTE | 2019-11-12 19:34 | NUR ---
Pulm - Dr. Roseanne RAMOS at nursing station, reviewed CTA. Per Dr. Cronin, thoracentesis is not needed, not enough fluid, okay to discharge home. Cleared from pulmonology stand point.
--- NOTE | 2019-11-12 19:50 | NUR ---
Called Lisbeth Griffith RE: Discharge spoke with Deidre. dv inhouse covid was not sent, waiting for call back to clarify if it is okay to discharge patient without covid swab. Dr. Fowler states he will have Dr. Griffith call to clarify. Awaiting call back.
[2019-11-12] MEDS ORDERED: levoFLOXacin 500 MG TAB PO SCH (20:00)
--- NOTE | 2019-11-12 20:40 | NUR ---
Second page to Dr. Griffith regarding discharge. awaiting call back.
--- NOTE | 2019-11-12 20:50 | NUR ---
Family updated regarding POC for discharge pending call back from MD. Questions and concerns addressed.
--- NOTE | 2019-11-12 21:00 | NUR ---
Received call back from Lisbeth suarez to discharge patient without covid swab. will carry out orders.
[2019-11-12 21:21] VITALS: BP 118/81
[2019-11-12 22:00] VITALS: BP 126/90
--- NOTE | 2019-11-12 22:15 | NUR ---
Discharge instructions given as ordered. Encourage to follow up with PMD as instructed. All questions and concerns addressed. Patient verbalized understanding. Medication reconciliation form completed and copy given to patient. IV removed with catheter intact, pressure dressing applied. Telemetry unit returned to ICU. Patient taken to vehicle via wheelchair with all personal belongings, accompanied by staff. No distress noted at time of departure.
== END 2019-11-12 22:15 | disposition home or self-care (01) | DRG 194 ==
LOC: ER 20:03 → EDBD 20:03 → TELE 20:04 → TELE-WESTW 11-11 16:00
PROVIDERS: ADMIT Specialist; ATTEND Internal Medicine
PROC: 5A1D70Z Performance of Urinary Filtration, Intermittent, Less than 6 Hours Per Day (ICD-10-PCS; principal; 2019-11-11)
DX: I13.2 Hypertensive heart and chronic kidney disease with heart failure and with stage 5 chronic kidney disease, or end stage renal disease (principal); I21.4 Non-ST elevation (NSTEMI) myocardial infarction; I50.43 Acute on chronic combined systolic (congestive) and diastolic (congestive) heart failure; N18.6 End stage renal disease; I42.8 Other cardiomyopathies; E03.9 Hypothyroidism, unspecified; D61.818 Other pancytopenia; E87.5 Hyperkalemia; E87.1 Hypo-osmolality and hyponatremia; J44.9 Chronic obstructive pulmonary disease, unspecified; E78.5 Hyperlipidemia, unspecified; F17.210 Nicotine dependence, cigarettes, uncomplicated; F32.9 Major depressive disorder, single episode, unspecified; F41.9 Anxiety disorder, unspecified; E86.1 Hypovolemia; Z99.2 Dependence on renal dialysis; F12.90 Cannabis use, unspecified, uncomplicated; Z91.14 Patient's other noncompliance with medication regimen; J98.11 Atelectasis; Z79.82 Long term (current) use of aspirin; Z82.49 Family history of ischemic heart disease and other diseases of the circulatory system; Z82.5 Family history of asthma and other chronic lower respiratory diseases; Z95.810 Presence of automatic (implantable) cardiac defibrillator; Z98.1 Arthrodesis status; Z88.5 Allergy status to narcotic agent; Z88.2 Allergy status to sulfonamides; Z20.828 Contact with and (suspected) exposure to other viral communicable diseases
CPT/HCPCS: 36415; 70450; 71045; 71275; 72125; 80048; 80053; 80320; 83605; 83735; 83880; 84484; 85025; 85379; 85610; 85730; 87040; 87426; 93005; 93306; 93970; C9113; G0378; J0696; J2405